=== PATIENT | female | born 1990 | race Caucasian/White ===

== ENCOUNTER 2017-04-04 20:44 | Emergency (ER) | payer OTHER, MEDICAID ==
[2017-04-04 21:06] VITALS: BP 127/86
--- NOTE | 2017-04-04 22:07 | EDM.PDOC ---
ED HPI GENERAL MEDICAL PROBLEM - General Chief Complaint: ENT Problem Stated Complaint: LT EYE PROBLEM Time Seen by Provider: 04/04/17 20:45 Source of Information: Reports: Patient History Limitations: Reports: No Limitations - History of Present Illness INITIAL COMMENTS - FREE TEXT/NARRATIVE: Noticed "goop" and "blurred" vision as day progressed. No other visual changes. No trauma. Onset: Today Onset Date: 04/04/17 Onset Time: 08:00 Duration: Hour(s): Location: Reports: Face Left Eye Pain Score (Numeric/FACES): 4 - Related Data Allergies Allergy/AdvReac Type Severity Reaction Status Date / Time environmental Allergy Sneezing Uncoded 02/10/15 00:54 Home Meds: Home Meds . Control Medication 1 patch TRDERM 02/10/15 [History] Varenicline [Chantix] 1 mg PO DAILY 04/04/17 [History] Past Medical History HEENT History: Reports: Impaired Vision Other HEENT History: wears contacts Other Genitourinary History: UTI history several years ago. Other OB/BYN History: Takes Control. - Infectious Disease History Infectious Disease History: Reports: Chicken Pox, Shingles Social & Family History - Family History Family Medical History: Noncontributory - Tobacco Use Smoking Status *Q: Current Every Day Smoker Years of Tobacco use: 9 Packs/Tins Daily: 0.5 - Caffeine Use Caffeine Use: Reports: Coffee, Soda - Recreational Drug Use Recreational Drug Use: No ED ROS ENT - Review of Systems Review Of Systems: ROS reveals no pertinent complaints other than HPI. ED EXAM, ENT - Physical Exam Exam: See Below Exam Limited By: No Limitations General Appearance: Alert, WD/WN, No Apparent Distress Eye Exam: Left Eye: Conjunctival Injection (Mild erythema) Ears: Normal External Exam Nose: Normal Inspection Mouth/Throat: Normal Inspection Head: Atraumatic, Normocephalic Neck: Normal Inspection Respiratory/Chest: No Respiratory Distress Cardiovascular: Regular Rate, Rhythm Neurological: Alert, Oriented Skin: Warm, Dry Course - Vital Signs Last Recorded V/S: Last Vital Signs Temp 36.3 C 04/04/17 20:59 Pulse 94 04/04/17 20:59 Resp 14 04/04/17 20:59 BP 127/86 04/04/17 20:59 Pulse Ox 100 04/04/17 20:59 Departure - Departure Time of Disposition: 20:50 Disposition: Home, Self-Care 01 Condition: Good Clinical Impression: Conjunctiva disorder - Discharge Information Instructions: Bacterial Conjunctivitis, [id number] Referrals: Ok Jones MD [Primary Care Provider] - Forms: ED Department Discharge Care Plan Goals: Ointment to each eye 3 times daily for one week. Wash hands and face often. Follow up if further concerns.
== END 2017-04-04 21:22 | disposition home or self-care (01) ==
LOC: FB.ED 20:44
DX: H11.9 Unspecified disorder of conjunctiva (principal); F17.210 Nicotine dependence, cigarettes, uncomplicated; Z88.8 Allergy status to other drugs, medicaments and biological substances; Z91.048 Other nonmedicinal substance allergy status
CPT/HCPCS: 99282

== ENCOUNTER 2018-11-13 20:51 | Emergency (ER) | payer BC, MEDICAID, OTHER ==
--- NOTE | 2018-11-13 21:17 | EDM.PDOC ---
ED HPI GENERAL MEDICAL PROBLEM - General Chief Complaint: Abdominal Pain Stated Complaint: RIGHT SIDE PAIN Time Seen by Provider: 11/13/18 21:13 Source of Information: Reports: Patient History Limitations: Reports: No Limitations - History of Present Illness INITIAL COMMENTS - FREE TEXT/NARRATIVE: Presents with RLQ non-radiating abdominal pain x 4 days, feels similar to when had kidney stone in the past. Denies N/V/D or vaginal discharge. Also states has h/o ovarian cysts. Onset Date: 11/09/18 Location: Reports: Abdomen Severity: Mild right groin Pain Score (Numeric/FACES): 9 - Related Data Allergies Allergy/AdvReac Type Severity Reaction Status Date / Time environmental Allergy Sneezing Uncoded 11/13/18 21:01 Home Meds: Home Meds . Control Medication 1 patch TRDERM 02/10/15 [History] Varenicline [Chantix] 1 mg PO DAILY 04/04/17 [History] Ciprofloxacin HCl [Cipro] 500 mg PO BID #14 tablet 11/14/18 [Rx] metroNIDAZOLE [Flagyl] 500 mg PO TID #21 tab 11/14/18 [Rx] Past Medical History HEENT History: Reports: Impaired Vision Other HEENT History: wears contacts Genitourinary History: Reports: Renal Calculus Other [employer] History: Takes Control. - Infectious Disease History Infectious Disease History: Reports: Chicken Pox, Shingles Social & Family History - Family History Family Medical History: Noncontributory - Tobacco Use Smoking Status *Q: Current Every Day Smoker Years of Tobacco use: 10 Packs/Tins Daily: 0.5 - Caffeine Use Caffeine Use: Reports: Coffee, Soda ED ROS GENERAL - Review of Systems Review Of Systems: ROS reveals no pertinent complaints other than HPI. ED EXAM, GI/ABD - Physical Exam Exam: See Below Exam Limited By: No Limitations General Appearance: Alert, WD/WN, No Apparent Distress Ears: Normal External Exam Nose: Normal Inspection Throat/Mouth: No Airway Compromise Head: Atraumatic, Normocephalic Neck: Supple Respiratory/Chest: No Respiratory Distress, Lungs Clear, Normal Breath Sounds Cardiovascular: Regular Rate, Rhythm, No Murmur GI/Abdominal Exam: Soft, No Distention, Tender (mild RLQ). No: Guarding, Rebound Extremities: Normal Range of Motion Neurological: Alert, Normal Cognition, No Motor/Sensory Deficits Skin Exam: Warm, Dry, Intact Course - Vital Signs Last Recorded V/S: Last Vital Signs Temp 36.8 C 11/13/18 20:51 Pulse 89 11/13/18 20:51 Resp 17 11/13/18 20:51 BP 122/67 11/13/18 20:51 Pulse Ox 98 11/13/18 20:51 - Orders/Labs/Meds Orders: Active Orders 24 hr Category Date Time Status Abdomen Pelvis w Cont [CT] Stat Exams 11/13/18 21:40 Ordered CULTURE URINE [RM] Stat Lab 11/13/18 21:00 Received Ciprofloxacin [Ciprofloxacin HCl] Med 11/14/18 00:12 Once 500 mg PO ONETIME ONE Sodium Chloride 0.9% [Saline Flush] Med 11/13/18 21:39 Active 10 ml FLUSH ASDIRECTED PRN metroNIDAZOLE [Flagyl] Med 11/14/18 00:12 Once 500 mg PO ONETIME ONE Saline Lock Insert [OM.PC] Routine Oth 11/13/18 21:39 Ordered Medication Orders Ciprofloxacin (Ciprofloxacin Hcl) 500 mg PO ONETIME ONE Stop: 11/14/18 00:13 Metronidazole (Flagyl) 500 mg PO ONETIME ONE Stop: 11/14/18 00:13 Sodium Chloride (Saline Flush) 10 ml FLUSH ASDIRECTED PRN PRN Reason: Keep Vein Open Last Admin: 11/13/18 21:50 Dose: 10 ml Labs: Laboratory Tests 11/13/18 11/13/18 11/13/18 Range/Units 20:05 20:05 21:00 WBC 13.7 H (4.5-12.0) X10-3/uL RBC 3.92 (3.23-5.20) x10(6)uL Hgb 12.6 (11.5-15.5) g/dL Hct 36.2 (30.0-51.3) % MCV 92.3 (80-96) fL MCH 32.1 (27.7-33.6) pg MCHC 34.7 (32.2-35.4) g/dL RDW 12.5 (11.5-15.5) % Plt Count 403 H (125-369) X10(3)uL MPV 8.0 (7.4-10.4) fL Neut % (Auto) 77.2 (46-82) % Lymph % (Auto) 13.2 (13-37) % [place] % (Auto) 7.9 (4-12) % Eos % (Auto) 1 (1.0-5.0) % Baso % (Auto) 1 (0-2) % Neut # (Auto) 10.5 H (1.6-8.3) # Lymph # (Auto) 1.8 (0.6-5.0) # [place] # (Auto) 1.1 (0.0-1.3) # Eos # (Auto) 0.2 (0.0-0.8) # Baso # (Auto) 0.1 (0.0-0.2) # Sodium 138 (135-145) mmol/L Potassium 4.0 (3.5-5.3) mmol/L Chloride 101 (100-110) mmol/L Carbon Dioxide 28 (21-32) mmol/L BUN 9 (7-18) mg/dL Creatinine 0.8 (0.55-1.02) mg/dL Est Cr Clr Drug Dosing 95.89 mL/min Estimated GFR (MDRD) > 60 (>60) BUN/Creatinine Ratio 11.3 (9-20) Glucose 77 L (80-116) mg/dL Calcium 9.3 (8.6-10.2) mg/dL Total Bilirubin 0.4 (0.1-1.3) mg/dL AST 17 (5-25) IU/L ALT 31 (12-36) U/L Alkaline Phosphatase 83 (56-112) IU/L Total Protein 7.7 (6.0-8.0) g/dL Albumin 3.4 L (3.5-5.2) g/dL Globulin 4.3 g/dL Albumin/Globulin Ratio 0.8 Urine Color Yellow (YELLOW) Urine Appearance Slightly cloudy (CLEAR) Urine pH 7.5 H (5.0-6.5) Ur Specific [place] 1.010 (1.010-1.025) Urine Protein Negative (NEGATIVE) mg/dL Urine Glucose (UA) Normal (NORMAL) mg/dL Urine Ketones Negative (NEGATIVE) mg/dL Urine Occult Blood Negative (NEGATIVE) Urine Nitrite Negative (NEGATIVE) Urine Bilirubin Negative (NEGATIVE) Urine Urobilinogen Normal (NEGATIVE) mg/dL Ur Leukocyte Esterase Moderate H (NEGATIVE) Urine RBC 0-5 (0-5) Urine WBC 10-20 H (0-5) Ur Epithelial Cells Moderate Amorphous Sediment Few Urine Bacteria Few H (NS) Urine HCG, Qual (NEGATIVE) 11/13/18 Range/Units 21:00 WBC (4.5-12.0) X10-3/uL RBC (3.23-5.20) x10(6)uL Hgb (11.5-15.5) g/dL Hct (30.0-51.3) % MCV (80-96) fL MCH (27.7-33.6) pg MCHC (32.2-35.4) g/dL RDW (11.5-15.5) % Plt Count (125-369) X10(3)uL MPV (7.4-10.4) fL Neut % (Auto) (46-82) % Lymph % (Auto) (13-37) % [place] % (Auto) (4-12) % Eos % (Auto) (1.0-5.0) % Baso % (Auto) (0-2) % Neut # (Auto) (1.6-8.3) # Lymph # (Auto) (0.6-5.0) # [place] # (Auto) (0.0-1.3) # Eos # (Auto) (0.0-0.8) # Baso # (Auto) (0.0-0.2) # Sodium (135-145) mmol/L Potassium (3.5-5.3) mmol/L Chloride (100-110) mmol/L Carbon Dioxide (21-32) mmol/L BUN (7-18) mg/dL Creatinine (0.55-1.02) mg/dL Est Cr Clr Drug Dosing mL/min Estimated GFR (MDRD) (>60) BUN/Creatinine Ratio (9-20) Glucose (80-116) mg/dL Calcium (8.6-10.2) mg/dL Total Bilirubin (0.1-1.3) mg/dL AST (5-25) IU/L ALT (12-36) U/L Alkaline Phosphatase (56-112) IU/L Total Protein (6.0-8.0) g/dL Albumin (3.5-5.2) g/dL Globulin g/dL Albumin/Globulin Ratio Urine Color (YELLOW) Urine Appearance (CLEAR) Urine pH (5.0-6.5) Ur Specific [place] (1.010-1.025) Urine Protein (NEGATIVE) mg/dL Urine Glucose (UA) (NORMAL) mg/dL Urine Ketones (NEGATIVE) mg/dL Urine Occult Blood (NEGATIVE) Urine Nitrite (NEGATIVE) Urine Bilirubin (NEGATIVE) Urine Urobilinogen (NEGATIVE) mg/dL Ur Leukocyte Esterase (NEGATIVE) Urine RBC (0-5) Urine WBC (0-5) Ur Epithelial Cells Amorphous Sediment Urine Bacteria (NS) Urine HCG, Qual Negative (NEGATIVE) Meds: Medications Generic Name Dose Route Start Last Admin Trade Name Freq PRN Reason Stop Dose Admin Ciprofloxacin 500 mg 11/14/18 00:12 Ciprofloxacin Hcl PO 11/14/18 00:13 ONETIME ONE Metronidazole 500 mg 11/14/18 00:12 Flagyl PO 11/14/18 00:13 ONETIME ONE Sodium Chloride 10 ml 11/13/18 21:39 11/13/18 21:50 Saline Flush FLUSH 10 ml ASDIRECTED PRN Administration Keep Vein Open Discontinued Medications Generic Name Dose Route Start Last Admin Trade Name Freq PRN Reason Stop Dose Admin Iopamidol 150 ml 11/13/18 22:10 11/13/18 22:17 Isovue-370 (76%) IV 11/13/18 22:11 116 ml ONETIME ONE Administration - Radiology Interpretation Free Text/Narrative:: CT Abd/Pelvis w/ IV contrast: Mild wall thickening terminal ileum with mild thickening of the adjacent retroperitoneal fascia. Appendix is normal. Departure - Departure Time of Disposition: 00:14 Disposition: Home, Self-Care 01 Condition: Good Clinical Impression: Abdominal pain Qualifiers: Abdominal location: right lower quadrant Qualified Code(s): R10.31 - Right lower quadrant pain Urinary tract infection Qualifiers: Urinary tract infection type: acute cystitis Hematuria presence: without hematuria Qualified Code(s): N30.00 - Acute cystitis without hematuria - Discharge Information *PRESCRIPTION DRUG MONITORING PROGRAM REVIEWED*: Yes *COPY OF PRESCRIPTION DRUG MONITORING REPORT IN PATIENT KRISTI: Not Applicable Prescriptions: Ciprofloxacin HCl [Cipro] 500 mg PO BID #14 tablet metroNIDAZOLE [Flagyl] 500 mg PO TID #21 tab Instructions: Abdominal Pain, Adult, [id number], Urinary Tract Infection, Adult, [id number] Referrals: Santos Saeed MD [Primary Care Provider] - 2 Days Forms: ED Department Discharge Additional Instructions: Fill the prescriptions for Cipro and Flagyl and take as directed. You may also take the Hydrocodone as directed for pain control. Follow up with your primary physician in 3-4 days. Return to the ER if symptoms worsen. - My Orders Last 24 Hours: My Active Orders 11/13/18 21:00 CULTURE URINE [RM] Stat 11/13/18 21:39 Sodium Chloride 0.9% [Saline Flush] 10 ml FLUSH ASDIRECTED PRN Saline Lock Insert [OM.PC] Routine 11/13/18 21:40 Abdomen Pelvis w Cont [CT] Stat 11/14/18 00:12 Ciprofloxacin [Ciprofloxacin HCl] 500 mg PO ONETIME ONE metroNIDAZOLE [Flagyl] 500 mg PO ONETIME ONE - Assessment/Plan Last 24 Hours: My Active Orders 11/13/18 21:00 CULTURE URINE [RM] Stat 11/13/18 21:39 Sodium Chloride 0.9% [Saline Flush] 10 ml FLUSH ASDIRECTED PRN Saline Lock Insert [OM.PC] Routine 11/13/18 21:40 Abdomen Pelvis w Cont [CT] Stat 11/14/18 00:12 Ciprofloxacin [Ciprofloxacin HCl] 500 mg PO ONETIME ONE metroNIDAZOLE [Flagyl] 500 mg PO ONETIME ONE
[2018-11-13] MEDS ORDERED: Sodium Chloride 0.9% 10 ML Syringe FLUSH PRN (21:39)
[2018-11-13] MEDS ORDERED: Iopamidol 755 MG/ML 150 ML Bottle IV ONE (22:10)
[2018-11-14] MEDS ORDERED: metroNIDAZOLE 500 MG Tab PO ONE (00:12)
[2018-11-14] MEDS ORDERED: Ciprofloxacin 500 MG Tab PO ONE (00:12)
[2018-11-14] MEDS ORDERED: Acetaminophen/HYDROcodone 325-5 MG Tab PO ONE (00:26)
[2018-11-14 06:24] VITALS: BP 114/73
== END 2018-11-14 00:35 | disposition home or self-care (01) ==
LOC: FB.ED 20:51
DX: N30.00 Acute cystitis without hematuria (principal); F17.210 Nicotine dependence, cigarettes, uncomplicated; Z91.09 Other allergy status, other than to drugs and biological substances; Z79.899 Other long term (current) drug therapy
CPT/HCPCS: 36415; 74177; 80053; 81001; 81025; 85025; 87086; 99284; A9270; Q9967

== ENCOUNTER 2018-12-07 06:49 | Day surgery (SDC) | payer BC ==
[~2018-12-07 06:49] MED LIST: Lactated Ringers 1,000 ML IV SCH; Sodium Chloride 0.9% 10 ML Syringe FLUSH PRN
[2018-12-07] MEDS ORDERED: Lidocaine 1% PF 2 ML SDV INJECT ONE (06:50)
[2018-12-07] MEDS ORDERED: Propofol 200 MG/20 ML SDV IV ONE (06:50)
--- NOTE | 2018-12-07 08:20 | PCM.OPNOTE ---
- General Post-Op/Procedure Note Date of Surgery/Procedure: 12/07/18 Operative Procedure(s): c scope with bx Findings: nl colon and ileum Pre Op Diagnosis: hx of abd pain abnl ct scan with inflammation of the terminal ileum Post-Op Diagnosis: nl colon and ileum Anesthesia Technique: MAC Primary Surgeon: Shalom Ley Anesthesia Provider: Adam Cool Pathology: terminal ileum Complications: None Condition: Good Free Text/Narrative:: see dictation
[2018-12-07 11:06] VITALS: BP 110/80; PULSE 74
--- NOTE | 2018-12-07 12:39 | OR ---
DATE OF OPERATION: 12/07/2018 SURGEON: Shalom Ley MD PROCEDURE PERFORMED: Colonoscopy with cold forceps biopsy. PREOPERATIVE DIAGNOSIS: Abnormal CT scan. POSTOPERATIVE DIAGNOSIS: Normal terminal ileum and colon. INDICATIONS FOR PROCEDURE: This is a 28-year-old white female who has had a history of lower abdominal pain, especially on the right. Apparently, CT scan was obtained during a recent visit to the emergency department. She was noted to have inflammation of the terminal ileum. She was offered and accepted a colonoscopy. DESCRIPTION OF OPERATION: After an excellent IV anesthetic was administered, digital rectal exam was performed. No marked abnormality was noted. Flexible colonoscope was inserted and advanced to the cecum without difficulty. The prep was excellent. The terminal ileum was easily intubated and the scope was advanced an additional 5 to 10 cm. Following findings were noted. The terminal ileum was unremarkable. Random biopsies were taken. Ascending colon, unremarkable. Transverse colon, unremarkable. Descending colon, unremarkable. Sigmoid and rectum, unremarkable. Colon was deflated as the scope was removed. Results by letter. The patient tolerated the procedure well. /[id number] /MODL
== END 2018-12-07 09:01 | disposition home or self-care (01) ==
LOC: FB.SDS 06:49
PROVIDERS: ATTEND Surgery
DX: R93.5 Abnormal findings on diagnostic imaging of other abdominal regions, including retroperitoneum (principal); R10.31 Right lower quadrant pain; R10.12 Left upper quadrant pain; R10.11 Right upper quadrant pain; K21.9 Gastro-esophageal reflux disease without esophagitis; F17.210 Nicotine dependence, cigarettes, uncomplicated; F41.9 Anxiety disorder, unspecified; F32.9 Major depressive disorder, single episode, unspecified; Z79.899 Other long term (current) drug therapy
CPT/HCPCS: 45380; 81025; 88305; J2001; J2704; J7120